=== PATIENT | male | born 1980 | race Caucasian/White ===

== ENCOUNTER 2019-07-26 10:22 | Emergency (ER) | payer MEDICAID ==
[~2019-07-26] VITALS: Ht 172.7 cm; Wt 59.1 kg
[2019-07-26 12:19] VITALS: BP 120/65
== END 2019-07-26 12:20 | disposition home or self-care (01) ==
LOC: ER 10:23
DX: T75.09XA Other effects of lightning, initial encounter (principal); Z79.899 Other long term (current) drug therapy; Y93.89 Activity, other specified; Y92.89 Other specified places as the place of occurrence of the external cause; Y99.8 Other external cause status
CPT/HCPCS: 93005; 99283